=== PATIENT | female | born 1955 | race Caucasian/White ===

== ENCOUNTER → 2025-04-03 09:55 | Outpatient (REF) | payer BC, SELFPAY | LOC: RAD 09:55 | PROVIDERS: ATTENDING PHYSICIAN Urology; FAMILY PHYSICIAN Student in an Organized Health Care Education/Training Program | DX: R10.2 Pelvic and perineal pain (principal); M62.89 Other specified disorders of muscle; N95.2 Postmenopausal atrophic vaginitis | CPT/HCPCS: 76770; 76856 ==

== ENCOUNTER → 2025-04-18 13:18 | Outpatient (REF) | payer BC, SELFPAY | LOC: RAD 13:18 | PROVIDERS: ATTENDING PHYSICIAN Urology; FAMILY PHYSICIAN Student in an Organized Health Care Education/Training Program | DX: R10.2 Pelvic and perineal pain (principal); R93.89 Abnormal findings on diagnostic imaging of other specified body structures | CPT/HCPCS: 74176 ==